=== PATIENT | female | born 1950 ===

== ENCOUNTER 2020-11-27 05:25 | Day surgery (SDC) | payer OTHER ==
[~2020-11-27 05:25] MED LIST: ACID REDUCER20 M1 PO; ATORVASTATIN CA10 MG PO; BUSPIRONE HCL7.5 MG PO; CLONAZEPAM0.5 MG PO; FLOVENT DISKUS50 MCG IH; FOSAMAX70 MG PO; GLIPIZIDE XL10 MG PO; HORIZANT300 MG PO; LIPIT PO; MULTIVI PO; NASAL MIST126 ML; NORVASC5 MG PO; PROAIR IH; VITAMIN B12; VITAMIN C PO; ZESTRIL40 M1 PO
[2020-11-27] MEDS ORDERED: PERCOCET 5-3251 EACH PO (09:13)
== END 2020-11-27 12:00 | disposition home or self-care (01) ==
LOC: CIR.AMB 05:25
PROVIDERS: ATTEND Surgery
DX: D35.1 Benign neoplasm of parathyroid gland (principal); Z20.822 Contact with and (suspected) exposure to COVID-19